=== PATIENT | female | born 1965 | race Asian ===

== ENCOUNTER 2024-05-06 20:46 | Emergency (ER) | payer OTHER, SELFPAY ==
[2024-05-06 20:47] VITALS: BP 157/89
[2024-05-06 22:00] VITALS: BP 146/77
[2024-05-06 22:09] LABS: % Eosinophils 2.8 % (0-6); % Immature Granulocytes 0.3 % (0-0.5); % Lymphocytes 39.8 % (20.5-51.1); % Monocytes 9.8 % (1.7-9.3); % Neutrophils 46.3 % (42.2-75.2); Absolute Basophils 0.1 10^3/uL (0-0.2); Absolute Eosinophils 0.2 10^3/uL (0-0.7); Absolute Lymphocytes 2.4 10^3/uL (1.2-3.4); Absolute Monocytes 0.6 10^3/uL (0.1-0.6); Absolute Neutrophils 2.8 10^3/uL (1.4-6.5); Hematocrit 36.8 % (37.0-47.0); Hemoglobin 12.4 g/dL (12.0-16.0); Mean Corp Hgb Conc. 33.7 g/dL (33.0-37.0); Mean Corpuscular Hgb 27.6 pg (27.0-31.0); Mean Corpuscular Volume 81.8 fL (81.0-99.0); Mean Platelet Volume 9.4 fL (7.4-10.4); Nucleated Red Blood Cells % 0 %; Platelet Count 364 10^3/uL (130-400); Red Cell Dist. Width 13.1 % (11.5-14.5)
[2024-05-06 22:25] LABS: ALT (SGPT) 38 U/L (0-35); AST (SGOT) 41 U/L (14-36); Albumin 4.7 g/dl (3.5-5.0); Alkaline Phosphatase 57 U/L (38-126); Blood Urea Nitrogen 18 mg/dl (7-17); Calcium 9.8 mg/dl (8.4-10.2); Carbon Dioxide 25 mmol/L (22-30); Chloride 104 mmol/L (98-107); D-Dimer < 0.27 ug/mlFEU (0.00-0.50); Glucose 86 mg/dl (70-99); Potassium 4.1 mmol/L (3.5-5.1); Sodium 143 mmol/L (135-145); Total Bilirubin 0.3 mg/dl (0.2-1.3); eGFR > 60.00
[2024-05-06 22:36] LABS: Troponin I < 0.012 ng/ml
[2024-05-06 23:00] VITALS: BP 140/87
[2024-05-07] VITALS: BP 130/77
--- NOTE | 2024-05-07 00:37 | ED.GENMED ---
History of Present Illness
General
Chief Complaint: Chest Pain
Source: patient and spouse
Time Seen by Provider: 05/06/24 21:28
History of Present Illness
History of Present Illness:
This is a 59-year-old female who presents with chest tightness and a cough. She states about 2 weeks ago had a sort of allergic seemingly reaction. The patient states that since then she has had a cough. She does have a history of asthma and
throughout the day today has had chest tightness. She states also has had some back discomfort. No fevers. Cough does persist. Did have a chest x-ray at urgent care.
Past History
Past History
ED Past Medical History: Asthma
ED Past Surgical History: Orthopedic
Social History
Tobacco: Non-smoker
Phy Exam
Physical Exam
Physical Exam:
CONSTITUTIONAL Patient alert and oriented to person, place and time. Well-appearing. Vital signs reviewed.
HEAD atraumatic, normocephalic.
EYES eyelids normal to inspection, Extraocular muscles intact, Conjunctiva normal, Sclera normal.
NECK normal range of motion, Trachea midline, no jugular venous distention.
RESPIRATORY CHEST No respiratory distress noted, Chest expansion equal, Bilateral breath sounds clear.
CARDIOVASCULAR regular rate and rhythm, Heart sounds normal.
ABDOMEN abdomen nontender, Bowel sounds normal. No distention.
BACK normal inspection, no obvious deformities
UPPER EXTREMITY range of motion normal, Motor strength normal, no cyanosis, no edema.
LOWER EXTREMITY range of motion normal, Motor strength normal, no cyanosis, no edema.
NEURO Speech normal, No focal motor deficits, Shanae coma scale 15, Memory normal, Cranial Nerves intact to screening exam.
SKIN skin warm, dry, and normal in color.
Scores
Heart Score for Chest Pain Patients
STEMI patient?: No
History: Slightly or Non-Suspicious
ECG: Normal
Age: >45 - <65 years
Risk Factors: No Risk Factors
Troponin: </= Normal Limit
Heart Score for Chest Pain Patients: 1
Heart Score Risk: 2.5% MACE over next 6 weeks
Course
Orders/Labs/Results
Orders:
Orders
05/06/24 20:51
EKG [Electrocardiogram (*1)] Urgent
Reason for Study: Chest Pain
EKG- Treatment ONCE
05/06/24 21:54
Cardiac Monitoring- Treatment ONCE
IV Insert/Care/Rem.- Treatment PRN
O2 Therapy [RESP] Urgent
Titrate/Wean O2 to maintain O2 sat greater than (%): 90
Special Instructions: Maintain sats >/=90%
Pulse Ox/spot Check [RESP] Urgent
Quantity: 1
Special Instructions: ON ROOM AIR
05/06/24 21:57
Complete Blood Count/With Diff Urgent
Comprehensive Metabolic Panel Urgent
D-Dimer Urgent
Troponin I Urgent
05/07/24 00:37
Vital Signs- Treatment ONCE
Frequency: Once
Abnormal Lab Results
05/06/24
21:57
Hct 36.8 L %
(37.0-47.0)
Monocytes % 9.8 H %
(1.7-9.3)
BUN 18 H mg/dl
(7-17)
AST 41 H U/L
(14-36)
ALT 38 H U/L
(0-35)
05/06/24 21:57
05/06/24 21:57
Vital Signs
Initial and Last Documented VS:
Initial Vital Signs
Temp Pulse Resp BP Pulse Ox
98.9 F 89 20 157/89 100
05/06/24 20:47 05/06/24 20:47 05/06/24 20:47 05/06/24 20:47 05/06/24 20:47
Last Documented Vital Signs
Temp Pulse Resp BP Pulse Ox
98.9 F 83 29 137/84 100
05/06/24 20:47 05/07/24 00:50 05/07/24 00:50 05/07/24 00:50 05/07/24 00:50
MDM/Problems Addressed
MDM/Problems Addressed:
bronchitis
*Radiology
Radiology exam reviewed: all reviewed NAD by ED Provider (pt brought CD from urgent care of CXR)
*Pulse Oximetry
Patient hypoxic: no
*EKG
Interpreted by ED Provider?: Yes
Interpretation: normal
Rate: normal
Rhythm: sinus
QRS Pattern: right bundle branch block
Ischemia: no ischemia
*Cooker Meal Interpretation
Rate: normal
Interpretation: normal
Rhythm: sinus
*Critical Care Note
Total Time (30-74mins, 75-104mins- exclusive of procedures): Not Applicable
Data Reviewed
Source: patient and spouse
Prescriptions/Medications Considered But Not Given:
Consider bronchodilators. Patient is not currently wheezing. Does have a noted dry cough
Patient Management
Escalation/DeEscalation of care consider admission/obs:
Troponin negative. I do suspect that she has a bronchitis as she has had this persistent cough. Trial of prednisone and continue inhaled steroids as well as bronchodilators at home
ED Attending Note
-
Portions of this chart may have been created with voice recognition software.� Occasional wrong word or��sound alike� substitutions may have occurred due to the inherent limitations of voice recognition software.
Discharge Plan
Departure
Patient Disposition: Home (Routine Discharge)
Date of Disposition: 05/07/24
Time of Disposition: 00:37
Patient with high blood pressure during this ER visit?: Yes
Discharge Problem:
Bronchitis
Instructions: Bronchitis, Adult ED, Chest Pain PCP Follow Up
Prescriptions:
New
prednisone 10 mg Tablet
See Rx Instructions .ROUTE .COMPLEX Qty: 30 0RF
Rx Instructions:
Take By Mouth:
40 mg daily x3 days, 30 mg daily x3 days,
20 mg daily x3 days, 10 mg daily x3 days.
Referrals:
NONE,* [Family Provider] -
Activity Restrictions/Additional Instructions:
Please see your doctor in the next 3 days for follow-up and reevaluation. Return immediately for worsening symptoms, fevers, vomiting, shortness of breath, palpitations or any other concerns.
Interventions
Interventions:
*Risk Screen - Suicide Last Done: 05/06/24 20:47
*General Assessment Last Done: 05/06/24 21:58
*Neglect/Abuse Screening Last Done: 05/06/24 20:47
*ED COVID-19 Vaccine History Last Done: 05/06/24 21:58
*Nursing Disposition Last Done: 05/07/24 01:26
ED- Cardiac Assessment Last Done: 05/07/24 00:52
Discharge Date and Time
Discharge Date/Time: 05/07/24 01:27
Print Language: CROATIAN
[2024-05-07 00:50] VITALS: BP 137/84
[2024-05-07 00:51] VITALS: BMI 25.1
== END 2024-05-07 01:27 | disposition home or self-care (01) ==
LOC: EMR 20:46
PROVIDERS: EMERGENCY PHYSICIAN Emergency Medicine
DX: J40 Bronchitis, not specified as acute or chronic (principal); J45.909 Unspecified asthma, uncomplicated
CPT/HCPCS: 99284; 80053; 84484; 85025; 85379; 93005